=== PATIENT | male | born 1970 | race Caucasian/White ===

== ENCOUNTER 2020-02-25 08:01 | Outpatient (CLI) | payer OTHER, SELFPAY ==
--- NOTE | ~2020-02-25 | CT_ITS ---
EXAMINATION: CT abdomen pelvis w con DATE: 02/25/2020 08:30 INDICATION: Abdominal pain. TECHNIQUE: Computed tomography (CT) of the abdomen and pelvis was performed with 100 mL Omnipaque 350 intravenous contrast. Automated exposure control and iterative reconstruction technique were employe d. The dose-length product was 983.77 mGy-cm. COMPARISON: Ultrasound 12/20/2017 FINDINGS: The visualized portions of the lung bases demonstrate mild atelectasis. No pleural effusion . The heart size is normal. No pericardial effusion. The liver, spleen, gallbladder, pancreas, and ad renal glands are normal. There are cysts in the kidneys measuring up to 11 mm on the right. The prost ate is mildly enlarged. There is diverticulosis of the colon without evidence of diverticulitis. The appendix is normal. There are no dilated loops of bowel. There is mild fat stranding at the root of t he small bowel mesentery. There are no pathologically enlarged lymph nodes. There is no free intraper itoneal fluid. There is a small left inguinal hernia containing fat. There is mild lumbar spondylosis . IMPRESSION: 1. Mild fat stranding at the root of the small bowel mesentery, consistent with edema versus inflamma tion/scarring (mesenteric panniculitis). 2. Small left inguinal hernia containing fat. Reviewed, dictated and finalized at location A. MIXER IMPRESSION: 1. Mild fat stranding at the root of the small bowel mesentery, consistent with edema versus inflammation/scarring (mesenteric panniculitis). 2. Small left inguinal hernia containing fat.
== END 2020-02-25 08:02 | disposition home or self-care (01) ==
LOC: ANHIMG 08:11
PROVIDERS: PCP Family Medicine; Visit Provider Family Medicine
DX: R10.9 Unspecified abdominal pain (principal); K40.90 Unilateral inguinal hernia, without obstruction or gangrene, not specified as recurrent
CPT/HCPCS: 74177; Q9967

== ENCOUNTER 2022-09-11 21:01 | Inpatient (IN) | payer OTHER, SELFPAY ==
[2022-09-11] VITALS (8 sets, daily range): BP systolic 167–185; BP diastolic 117–155; PULSE 70–90; RESP 12–22; TEMP 36.9; O2SAT 94–100; BMI 29.8
--- NOTE | ~2022-09-11 | XR_ITS ---
Portable chest x-ray Comparison: 10/05/2016 Clinical History: Chest pain Findings: Lungs are clear, without focal consolidation or pleural effusion. Cardiomediastinal silho uette is stable. Bones and soft tissues are unremarkable. Impression: Normal chest. Reviewed, dictated and finalized at [facility]. Impression: Normal chest.
--- NOTE | 2022-09-11 21:02 | ECG_ITS ---
Measurements Intervals [place] Rate: 78 P: 43 KS: 145 QRS: -12 QRSD: 102 T: 70 QT: 359 QTc: 411 Interpretive Statements SINUS RHYTHM WITH FREQUENT VENTRICULAR PREMATURE COMPLEXES POSSIBLE RIGHT VENTRICULAR CONDUCTION DELAY [RSR (QR) IN V1/V2] INFERIOR MYOCARDIAL INFARCTION , POSSIBLY ACUTE [40+ ms Q WAVE AND/OR ST/T ABNORMALITY IN II/aVF] ACUTE OR ABNORMAL ECG NO PREVIOUS ECG AVAILABLE FOR COMPARISON Electronically Signed On 09-12-2022 10:22:08 CDT by Louis Leigh M.D.
--- NOTE | 2022-09-11 21:13 | ECG_ITS ---
Measurements Intervals [place] Rate: 73 P: 45 MS: 143 QRS: -14 QRSD: 102 T: 66 QT: 359 QTc: 396 Interpretive Statements SINUS RHYTHM WITH OCCASIONAL VENTRICULAR PREMATURE COMPLEXES LOW QRS VOLTAGE IN PRECORDIAL LEADS [QRS DEFLECTION < 1.0 mV IN CHEST LEADS] POSSIBLE RIGHT VENTRICULAR CONDUCTION DELAY [RSR (QR) IN V1/V2] MARKED ST ELEVATION, CONSIDER INFERIOR INJURY [MARKED ST ELEVATION W/O NORMALLY INFLECTED T-WAVE IN II/aVF] ACUTE WI ABNORMAL ECG COMPARED TO ECG 09/11/2022 21:06:14 NO SIGNIFICANT CHANGES Electronically Signed On 09-14-2022 12:07:01 CDT by Louis Leigh M.D.
[2022-09-11] MEDS: ASPIRIN 81 MG CHEWABLE TABLET 324 MG PO (21:22)
[2022-09-11] MEDS: TICAGRELOR 90 MG TABLET 180 MG PO (21:23)
[2022-09-11 21:25] LABS: Basophils Absolute Auto 0.1 K/mm3 (0.0-0.1); Basophils Percent Auto 0.9 % (0.2-1.2); Eosinophils Absolute Auto 0.2 K/mm3 (0-0.3); Eosinophils Percent Auto 3.8 % (0-4.4); Hematocrit 46.5 % (42.0-52.0); Hemoglobin 15.6 g/dL (14.0-18.0); Immature Granulocyte Absolute 0.01 K/mm3 (0.00-0.031); Immature Granulocyte Percent A 0.2 % (0-0.5); Lymphocytes Percent Auto 34.6 % (18.3-44.2); Mean Corpuscular HGB Conc 33.5 g/dl (32-36); Mean Corpuscular Hemoglobin 28.8 pg (26-34); Mean Corpuscular Volume 85.8 fl (80-100); Mean Platelet Volume 9.7 fl (7.4-10.4); Monocytes Absolute Auto 0.4 K/mm3 (0.1-0.6); Monocytes Percent Auto 6.1 % (2.6-8.5); Neutrophils Absolute Auto 3.5 K/mm3 (1.3-6.7); Neutrophils Percent Auto 54.4 % (45.5-73.1); Platelet Count Result 266 k/mm3 (150-375); Red Blood Count 5.42 M/mm3 (4.6-6.20); Red Cell Distribution Width 13.5 % (11.5-14.5); White Blood Count 6.4 K/mm3 (4.5-10.0)
[2022-09-11] MEDS: MORPHINE SULFATE (*CRX) 4 MG/ML INJ IV PUSH (21:25)
[2022-09-11] MEDS: HEPARIN SODIUM 5,000 UNITS/ML VIAL 4000 UNITS IV PUSH (21:27)
--- NOTE | 2022-09-11 21:31 | ED.GENADULT ---
HPI - General Adult General Chief complaint: Chest Pain Stated complaint: chest pain Time Seen by Provider: 09/11/22 21:15 History of Present Illness HPI narrative: Patient 52-year-old gentleman who presents emergency department with chief complaint of chest pain. The patient states approximate 30 minutes prior to arrival he started having midsternal pain in his chest. The patient reports is not improved by anything reports that he has significant family history for cardiac disease but is personally never had a heart attack. The patient states that his father had a NC in the 40s Related Data Home Medications Medication Instructions Recorded Confirmed cetirizine 10 mg tablet 10 mg PO DAILY 03/30/20 04/06/20 fluticasone propionate 50 1 spray intranasal DAILY 03/30/20 04/06/20 mcg/actuation nasal spray,suspension (24 Hour Allergy Relief) naproxen 500 mg tablet 500 mg PO BID 03/30/20 04/06/20 Allergies Allergy/AdvReac Type Severity Reaction Status Date / Time No Known Allergies Allergy Verified 09/11/22 21:02 Review of Systems Review of Systems: A 10 system review of systems was completed on the patient and is negative except for what is stated in the HPI. Nursing and ancillary documentation was reviewed. PMFSH Past Medical History Medical History Abnormal CT of the abdomen Anxiety Asthma High cholesterol Neoplasm of skin Surgical History Surgical History H/O knee surgery x4 H/O removal of cyst Family History Family History Mother Family history of diabetes mellitus in first degree relative Family history of lymphoma Diabetes mellitus Cerebrovascular accident Father Family history of heart disease in male family member before age 55 Social History Social History Smoking status: Never smoker Alcohol intake: current Substance use: unknown Living arrangements: with family Occupation/Education: occupation Additional occupation/education comments: [employer] Gender identity (if verbalized by the patient): Male Exam Narrative: GENERAL: Well-appearing, well-nourished, and in no acute distress. HEAD: Normocephalic, atraumatic. EYES: PERRLA and EOMI. ENT: Nares clear, no rhinorrhea or epistaxis. Mucous membranes moist. NECK: Supple. CHEST: Clear to auscultation. No respiratory distress. HEART: Regular rate and rhythm. No murmur heard. Normal peripheral pulses. ABDOMEN: Soft, nontender, nondistended, normal active bowel sounds. EXTREMITIES: Normal range of motion. No edema. SKIN: Warm, dry, no rash. NEURO: No focal deficits. Alert and oriented x3. PSYCH: Normal mood and affect. Course Course Emergency Course: Differential diagnosis includes NSTEMI, STEMI, ACS, Initial EKG showed inferior ST elevations and the patient was immediately activated as an ST elevation NC. Case was discussed with Dr. Rodrigez who is the interventional list on she will be taking the patient to the Hospital Administrative Assistant the patient was given aspirin Brilinta and heparin Vital Signs Vital signs: Vital Signs Temperature 36.9 C 09/11/22 21:11 Pulse Rate 70 09/11/22 21:11 Respiratory Rate 22 H 09/11/22 21:11 Blood Pressure 167/117 H 09/11/22 21:11 Pulse Oximetry 94 09/11/22 21:11 Oxygen Delivery Room Air 09/11/22 21:11 Temperature 36.9 C 09/11/22 21:11 Pulse Rate 75 09/11/22 21:16 Respiratory Rate 22 H 09/11/22 21:11 Blood Pressure 167/117 H 09/11/22 21:11 Pulse Oximetry 97 09/11/22 21:17 Oxygen Delivery Room Air 09/11/22 21:17 Medical Decision Making Vital Signs Vital Signs: Vital Signs Temperature 36.9 C 09/11/22 21:11 Pulse Rate 70 09/11/22 21:11 Respiratory Rate 22 H 09/11/22 21:11
[2022-09-11 21:35] LABS: Alanine Aminotransferase 40 U/L (6-50); Albumin Level 4.5 g/dL (3.5-5.1); Alkaline Phosphatase 51 U/L (38-126); Anion Gap 9 mmol/L (8-16); Aspartate Amino Transferase 41 U/L (17-59); Bilirubin,Total 0.5 mg/dL (0.2-1.3); Blood Urea Nitrogen 20 mg/dL (9-20); Calcium 9.1 mg/dL (8.4-10.2); Carbon Dioxide 26 mmol/L (22-30); Chloride 108 mmol/L (98-107); Estimated CRCL calculation 80 ml/min; Estimated Glomerular Filt Rate > 60; Glucose 126 mg/dL (65-110); Lipase 208 U/L (23-300); Potassium 3.8 mmol/L (3.4-5.0); Prothrombin Time 13.3 Seconds (11.1-14.7); Sodium 143 mmol/L (137-145)
[2022-09-11 21:36] LABS: Partial Thromboplastin Time 28.2 SECONDS (22.3-36.8)
[2022-09-11] MEDS: HEPARIN SOD/D5W 100 UNITS/ML 25,000 UNITS/250 ML BAG 10 UNITS IV CONT (21:39)
[2022-09-11 21:46] LABS: Troponin I < 0.012 ng/mL (0.000-0.034)
--- NOTE | 2022-09-11 22:16 | PM.IMHP ---
H&P: HPI History of Present Illness Date/Time: 09/11/22 22:16 Chief Complaint: Chest pain Narrative: Patient is a 52-year-old male who presented to [facility] for chest pain that began about 30 minutes prior to arrival to ER. EKG shows inferior STEMI. 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 Patient has family history of premature CAD. Review of Systems Review of Systems: All systems reviewed & are unremarkable except as noted in HPI and below (HPI) [facility] Past Medical History Medical History Abnormal CT of the abdomen Anxiety Asthma High cholesterol Neoplasm of skin Surgical History Surgical History H/O knee surgery x4 H/O removal of cyst Family History Family History Mother Family history of diabetes mellitus in first degree relative Family history of lymphoma Diabetes mellitus Cerebrovascular accident Father Family history of heart disease in male family member before age 55 Social History Social History Smoking status: Never smoker Alcohol intake: current Substance use: unknown Living arrangements: with family Occupation/Education: occupation Additional occupation/education comments: [employer] Gender identity (if verbalized by the patient): Male Meds Home Medications and Allergies Home Medications Medication Instructions Recorded Confirmed Type cetirizine 10 mg tablet 10 mg PO DAILY 03/30/20 04/06/20 History fluticasone propionate 50 1 spray intranasal DAILY 03/30/20 04/06/20 History mcg/actuation nasal spray,suspension (24 Hour Allergy Relief) naproxen 500 mg tablet 500 mg PO BID 03/30/20 04/06/20 History Allergies Allergy/AdvReac Type Severity Reaction Status Date / Time No Known Allergies Allergy Verified 09/11/22 21:02 Vital Signs Vital Signs - 24 hr 09/11/22 21:11 09/11/22 21:16 09/11/22 21:17 Temperature 36.9 C Pulse Rate 70 75 Respiratory Rate 22 H Blood Pressure 167/117 H Pulse Oximetry 94 97 Oxygen Delivery Room Air Room Air 09/11/22 21:49 Temperature Pulse Rate 74 Respiratory Rate 12 Blood Pressure 181/125 H Pulse Oximetry 96 Oxygen Delivery Exam Const: General: no acute distress HENMT: Mouth: Yes moist mucous membranes Eyes: General: appearance normal, both eyes and all related structures Sclera: sclerae normal Neck: Neck: supple Resp: Effort & Inspection: normal respiratory effort Auscultation: clear to auscultation bilaterally Cardio: Rate: regular rate Rhythm: regular rhythm Neuro: Speech: normal speech Extrem: General: normal to inspection Psych: Mental Status: mental status grossly normal Affect: normal affect H&P: Results Labs Labs: Short CBC 09/11/22 Range/Units 21:20 WBC 6.4 (4.5-10.0) K/mm3 Hgb 15.6 (14.0-18.0) g/dL Hct 46.5 (42.0-52.0) % Plt Count 266 (150-375) k/mm3 BMP 09/11/22 21:20 Sodium 143 Potassium 3.8 Chloride 108 H Carbon Dioxide 26 BUN 20 Creatinine 1.10 Glucose 126 H Calcium 9.1 Cardiac Enzymes 09/11/22 Range/Units 21:20 Troponin I < 0.012 (0.000-0.034) ng/mL Liver Function 09/11/22 Range/Units 21:20 Total Bilirubin 0.5 (0.2-1.3) mg/dL AST 41 (17-59) U/L ALT 40 (6-50) U/L Alkaline Phosphatase 51 (38-126) U/L Albumin 4.5 (3.5-5.1) g/dL Assessment and Plan Assessment and plan (1) Acute ST elevation myocardial infarction: Qualifiers: Involved coronary artery: unspecified coronary artery Qualified Code(s): I21.3 - ST elevation (STEMI) myocardial infarction of unspecified site Code(s): I21.3 - ST elevation (STEMI) myocardial infarction of unspecified site Status: Acute Assessment and Plan: Proceed with emergent cardiac cath. Patient loaded with ASA and
--- NOTE | 2022-09-11 22:19 | WPDMODSED ---
Moderate Sedation Note-Pt Data Patient Data Diagnosis: Inferior STEMI Present Complaint: Chest pain Procedure to be performed/Plan: Primary PCI Allergies Allergy/AdvReac Type Severity Reaction Status Date / Time No Known Allergies Allergy Verified 09/11/22 21:02 Home Medications Medication Instructions Recorded Confirmed Type cetirizine 10 mg tablet 10 mg PO DAILY 03/30/20 04/06/20 History fluticasone propionate 50 1 spray intranasal DAILY 03/30/20 04/06/20 History mcg/actuation nasal spray,suspension (24 Hour Allergy Relief) naproxen 500 mg tablet 500 mg PO BID 03/30/20 04/06/20 History Current Medications: Active Medications Heparin Sodium (Porcine) (Heparin Sodium 5,000 Units/Ml Vial) 3,500 units IV PUSH PRN PRN PRN Reason: aPTT 55 - 70 seconds Heparin Sodium (Porcine) (Heparin Sodium 5,000 Units/Ml Vial) 4,000 units IV PUSH PRN PRN PRN Reason: aPTT less than 55 seconds Heparin Sodium/Dextrose (Heparin Sodium/D5w 100 Units/Ml) 25,000 units in 250 mls @ 10 mls/hr IV CONT .Q24H ANDRÉS; Protocol Last Admin: 09/11/22 21:39 Dose: 1,000 units/hr, 10 mls/hr Sedation/Anesthesia: No previous sedation/anesthesia problems (including family history). [facility] Past Medical History Medical History Abnormal CT of the abdomen Anxiety Asthma High cholesterol Neoplasm of skin Surgical History Surgical History H/O knee surgery x4 H/O removal of cyst Family History Family History Mother Family history of diabetes mellitus in first degree relative Family history of lymphoma Diabetes mellitus Cerebrovascular accident Father Family history of heart disease in male family member before age 55 Social History Social History Smoking status: Never smoker Alcohol intake: current Substance use: unknown Living arrangements: with family Occupation/Education: occupation Additional occupation/education comments: [employer] Gender identity (if verbalized by the patient): Male Mod Sed Physical Exam Physical Exam Pre Procedural Exam: Normal: Appearance, Lungs, Heart Rate, Heart Rhythm, Neuro Exam, Abdomen, Extremities and Skin Hours since solid foods: 4 Hours since liquid intake: 4 Mallampati Classification: class III Internal Medicine - PN: Obj Da Vital Signs Vital Signs: Vital Signs - 24 hr 09/11/22 21:11 09/11/22 21:16 09/11/22 21:17 Temperature 36.9 C Pulse Rate 70 75 Respiratory Rate 22 H Blood Pressure 167/117 H Pulse Oximetry 94 97 Oxygen Delivery Room Air Room Air 09/11/22 21:49 Temperature Pulse Rate 74 Respiratory Rate 12 Blood Pressure 181/125 H Pulse Oximetry 96 Oxygen Delivery Meds/Results Medications: Active Medications Generic Name Dose Route Start Last Admin Trade Name Freq PRN Reason Stop Dose Admin Heparin Sodium (Porcine) 3,500 units 09/11/22 21:22 Heparin Sodium 5,000 Units/Ml Vial IV PUSH PRN PRN aPTT 55 - 70 seconds Heparin Sodium (Porcine) 4,000 units 09/11/22 21:22 Heparin Sodium 5,000 Units/Ml Vial IV PUSH PRN PRN aPTT less than 55 seconds Heparin Sodium/Dextrose 25,000 units in 250 mls @ 10 mls/hr 09/11/22 21:25 09/11/22 21:39 Heparin Sodium/D5w 100 Units/Ml IV CONT 1,000 units/hr .Q24H ANDRÉS 10 mls/hr Administration Protocol 1,000 UNITS/HR Radiology Results: ITS Impressions Chest X-Ray 09/11/22 21:47 Impression: Normal chest. Labs 09/11/22 21:20 09/11/22 21:20 Labs: Laboratory Results - last 24 hr 09/11/22 21:20 WBC 6.4 RBC 5.42 Hgb 15.6 Hct 46.5 MCV 85.8 MCH 28.8 MCHC 33.5 RDW 13.5 Plt Count 266 MPV 9.7 Immature Gran % (Auto) 0.2 Neut % (Auto) 54.4 Lymph % (Auto) 34
--- NOTE | 2022-09-11 22:20 | WPDCARDPROC ---
Cardiac Cath Procedure Note Date of procedure:: 09/11/22 Performing physician:: CATHETERIZATION LABORATORY REPORT Procedure Date: 09/11/2022 Car Shunter: Dustin Rodrigez M.D., [facility]? Referring Physician: Dr. Lema ([facility]) Anesthesia: Versed and Fentanyl were ordered and given in my presence at 22:24, procedure ended at 23:11. Supervision of nurse monitored moderate sedation with Versed and Fentanyl was provided for 47 minutes. Total of Versed 3mg, Fentanyl 100mcg, and Morphine 2mg were administered by the Information Security Systems Instructor RN Sherin Vallejo. Pre-op Diagnosis: STEMI Post-op Diagnosis: 1. Acute 100% occlusion of mid RCA s/p successful IVUS-guided PCI with JOSE D x 1 2. Left ventricular end-diastolic pressure of 38mmHg Of note, [id number] time was >90 minutes as not all members of the on-call STEMI team were called in / notified about the STEMI. This resulted in delay of arrival of cath team, and therefore, delayed the arrival of patient to the carpenter labor supervisor. Procedure(s): 1. Moderate sedation 2. Ultrasound-guided access of the right common femoral artery 3. Coronary angiography 4. Left heart cath 5. PCI of the mid RCA with JOSE D x 1, with pre and post dilatation 6. IVUS of the RCA. 7. Angioseal closure of the right common femoral artery Access Site: Right common femoral artery Brief History and Clinical Indications: Patient is a 52-year-old male who is referred for emergent cardiac cath for STEMI. All risks, benefits and alternatives to left heart catheterization with or without percutaneous coronary intervention was discussed at length with the patient. Risk of complications including but not limited to bleeding, infection, arrhythmia, stroke, worsening kidney function, blood loss, groin hematoma, limb loss, emergency coronary artery bypass grafting, and even were discussed with the patient and all questions were answered. The patient understood and wished to proceed. Time out called, patient name, date of , medical record number, allergies, procedure performed, identify Car Shunter, patient and staff member concurred with accurate data, procedure carried on. Findings: LEFT HEART CATHETERIZATION FINDINGS: 1. Left main: The left main coronary artery is widely patent without any significant obstructive disease. The left main is short. 2. Left anterior descending: The proximal and mid portion of the LAD is large caliber vessel and with mild diffuse disease. The distal LAD is small-medium caliber and is diffusely diseased. The diagonal vessels are of small caliber and with diffuse disease. 3. Left circumflex: The left circumflex is a large caliber vessel with mild diffuse disease without any significant obstructive angiographic disease. There is a medium caliber OM branch with mild diffuse disease without significant obstructive angiographic disease. 4. Right coronary artery: The RCA is the dominant vessel. The RCA is a large caliber vessel. The proximal RCA has mild diffuse disease. There is a 100% acute occlusion of the mid RCA. 5. Left ventricle: A. End-diastolic pressure 38mmHg. B. LV gram deferred. C. No significant gradient across aortic valve on catheter pullback. Description of Procedure and PCI: Patient transferred to carpenter labor supervisor room. Prepped and draped in usual sterile fashion. 2% lidocaine in right groin area. Micropuncture needle used to access right common femoral artery with Seldinger technique under fluoroscopic and ultrasound guidance. J wire advanced, micropuncture cannula placed. Right iliofemoral angiogram performed, access confirmed and micropuncture cannula exchanged for 6-FR sheath. 5F FL 4 diagnostic catheter engaged Left Main Coronary Artery. Multiple orthogonal angiogram obtained and reviewed Angiomax used for anticoagulation. 6F JR 4 guide catheter was used to intubate the RCA. 0.014 Chemult coronary wire was passed in to the distal RCA. The lesion was pre-dilated with a 3.0mm x 15
[2022-09-11 22:38] LABS: Cholesterol 232 mg/dL (0-200); HDL Direct 33 mg/dL; Triglycerides 258 mg/dL (<150)
[2022-09-11 22:40] LABS: Hemoglobin A1C 5.4 % (<5.7)
[2022-09-11 22:49] LABS: LDL Cholesterol Direct 160 mg/dL
--- NOTE | 2022-09-11 23:49 | ADMGEN ---
This patient, Bandar Cerda, was admitted to Intensive Care Unit-6 on 09/11/22 at 2350. Patient/family oriented to hospital policies and general routines including ID bracelet, bed and alarms, visiting hours, pain management, procedures, bathroom and other care routines, personal items, smoking policy, room service/diet, and visiting hours. Information on how to activate the Rapid Response Team has been discussed. Patient/Family are encouraged to report perceived risks to care and to ask questions if they do not understand what they are told or what they should do.
[2022-09-12] VITALS (15 sets, daily range): BP systolic 113–149; BP diastolic 73–93; PULSE 61–88; RESP 11–20; TEMP 36.2–37.2; O2SAT 91–99
--- NOTE | 2022-09-12 | ECHO_ITS ---
Patient Info Name: Bandar Cerda Age: 52 years : 1970 Gender: Male Ht: 74 in Wt: 230 lbs BSA: 2.35 m2 HR: 77 bpm BP: 127 / 79 mmHg Heart Rhythm: Sinus Rhythm Technical Quality: Fair Exam Date: 09/12/2022 8:10 AM Exam Location: [facility] Patient Status: Inpatient Admit Date: 09/11/2022 Staff Ordering Physician: Dustin Rodrigez MD (gustavo/liliam) Clearance Rep: Keara Mendoza RDCS Attending Provider: Dustin Rodrigez MD (gustavo/liliam) Referring Physician: Elia GRACE; Exam Type: CA echo doppler color flow Study Info Indications - STEMI Complete two-dimensional, color flow and Doppler transthoracic echocardiogram is performed. Summary 1. Complete two-dimensional, color flow and Doppler transthoracic echocardiogram is performed. 2. Normal left ventricular size and thickness, inferior wall hypokinesia overall normal ejection fraction. 3. Right ventricular systolic dysfunction. 4. No significant valvular dysfunction. Left Ventricle Left ventricular chamber dimension is normal. Left ventricular systolic function is normal, estimated at 55-60%. The left ventricular diastolic function is grade I diastolic dysfunction. Right Ventricle Right ventricular chamber dimension is normal. Right ventricular systolic function is reduced. Left Atria Left atrial chamber dimension is normal. Right Atria Right atrial chamber dimension is normal. Aortic Valve The aortic valve is normal. Pulmonic Valve The pulmonic valve is normal. Mitral Valve The mitral valve has normal leaflets. Tricuspid Valve The tricuspid valve leaflets are normal. Pericardium/Pleural The pericardium appears normal. Aorta The aortic root size at the sinus of Valsalva is normal. Left Ventricular Outflow Tract Name Value Normal LVOT 2D LVOT Diameter 2.0 cm LVOT Doppler LVOT Peak Gradient 4 mmHg LVOT Mean Gradient 2 mmHg LVOT VTI 20 cm LVOT VTI/AV VTI Ratio 0.9 LVOT Stroke Volume 65 ml LVOT CO 4.0 l/min LVOT CI 1.7 l/min/m2 Pulmonic Valve Name Value Normal RVOT Doppler RVOT Peak Gradient 1 mmHg PV Doppler PV Peak Gradient 3 mmHg Mitral Valve Name Value Normal MV Doppler MV Decel Early 318 cm/s2 MV PHT 48 ms MV Area (PHT) 4.6 cm2 4.0-5.0 MV Diastolic Function
--- NOTE | 2022-09-12 01:50 | ECG_ITS ---
Measurements Intervals [place] Rate: 89 P: 50 AR: 153 QRS: -19 QRSD: 103 T: -19 QT: 359 QTc: 439 Interpretive Statements SINUS RHYTHM INCOMPLETE RIGHT BUNDLE BRANCH BLOCK [90+ ms QRS DURATION, TERMINAL R IN V1/V2, 40+ ms S IN I/aVL/V4/V5/V6] INFERIOR MYOCARDIAL INFARCTION RECENT BY ECG REVIEW COMPARED TO ECG 09/11/2022 21:06:14 ACUTE INJURY HAS RESOLVED AND ECTOPIC ACTIVITY IS ALSO RESOLVED Electronically Signed On 09-12-2022 16:22:17 CDT by Markus Maldonado M.D.
[2022-09-12 03:24] LABS: Basophils Percent Auto 0.5 % (0.2-1.2); Eosinophils Percent Auto 0.5 % (0-4.4); Hematocrit 43.8 % (42.0-52.0); Hemoglobin 14.4 g/dL (14.0-18.0); Immature Granulocyte Absolute 0.02 K/mm3 (0.00-0.031); Immature Granulocyte Percent A 0.3 % (0-0.5); Lymphocytes Absolute Auto 0.89 K/mm3 (0.9-3.2); Lymphocytes Percent Auto 11.4 % (18.3-44.2); Mean Corpuscular HGB Conc 32.9 g/dl (32-36); Mean Corpuscular Hemoglobin 28.6 pg (26-34); Mean Corpuscular Volume 87.1 fl (80-100); Mean Platelet Volume 9.4 fl (7.4-10.4); Monocytes Absolute Auto 0.3 K/mm3 (0.1-0.6); Monocytes Percent Auto 4.1 % (2.6-8.5); Neutrophils Absolute Auto 6.5 K/mm3 (1.3-6.7); Neutrophils Percent Auto 83.2 % (45.5-73.1); Platelet Count Result 226 k/mm3 (150-375); Red Blood Count 5.03 M/mm3 (4.6-6.20); Red Cell Distribution Width 13.7 % (11.5-14.5); White Blood Count 7.8 K/mm3 (4.5-10.0)
[2022-09-12 03:37] LABS: Anion Gap 6 mmol/L (8-16); Blood Urea Nitrogen 15 mg/dL (9-20); Calcium 8.4 mg/dL (8.4-10.2); Carbon Dioxide 23 mmol/L (22-30); Chloride 109 mmol/L (98-107); Estimated CRCL calculation 122 ml/min; Estimated Glomerular Filt Rate > 60; Glucose 153 mg/dL (65-110); Magnesium 1.8 mg/dL (1.6-2.3); Potassium 3.8 mmol/L (3.4-5.0); Sodium 138 mmol/L (137-145)
[2022-09-12] MEDS: MAGNESIUM SULF 1 GM/D5W 100 ML 1 GM/100 ML BAG IVPB (04:52)
[2022-09-12] MEDS: METOPROLOL TARTRATE 12.5 MG TABLET PO ×2 (04:53→20:20)
[2022-09-12] MEDS: ONDANSETRON INJ 4 MG/2 ML VIAL IV PUSH (08:54)
[2022-09-12] MEDS: ATORVASTATIN 40 MG TABLET 80 MG PO (08:55)
[2022-09-12] MEDS: TICAGRELOR 90 MG TABLET PO ×2 (08:55→20:20)
[2022-09-12] MEDS: ASPIRIN 81 MG ENTERIC TABLET PO (08:55)
--- NOTE | 2022-09-12 09:30 | WPDCNINT ---
Assessment and Plan Assessment and plan (1) Acute ST elevation myocardial infarction: Qualifiers: Involved coronary artery: unspecified coronary artery Qualified Code(s): I21.3 - ST elevation (STEMI) myocardial infarction of unspecified site Code(s): I21.3 - ST elevation (STEMI) myocardial infarction of unspecified site Status: Acute Assessment and Plan: 09/11: Presented to the ED with chest pain that started 30 minutes prior to arrival to the ED, substernal chest pain with shortness of breath with no alleviating factor. Patient does have a family history with PMH of coronary artery disease -EKG in the ER of showed inferior ST-elevation [place], -patient taken to cardiac r and d lab technician where he was found to have acute 100% occlusion of the mid RCA status post successful IVUS guided PCI with JOSE D x1 to mid RCA. -continue aspirin, atorvastatin, metoprolol and ticagrelor -cardiology following the patient -echocardiogram has been ordered (2) Hyperlipidemia: Code(s): E78.5 - Hyperlipidemia, unspecified Status: Acute Assessment and Plan: Continue high-dose statin Plan DVT prophylaxis: Patient post cardiac catheterization Stress ulcer prophylaxis: Not indicated Nutrition: Heart healthy diet Code Status: Full code Critical Care Time Spent: 44 minutes Due to a high probability of clinically significant, life threatening deterioration, the patient required my highest level of preparedness to intervene emergently and I personally spent this critical care time directly and personally managing the patient. This critical care time included obtaining a history; examining the patient; pulse oximetry; ordering and review of studies; arranging urgent treatment with development of a management plan; evaluation of patient's response to treatment; frequent reassessment; and discussions with other providers. It was exclusive of separately billable procedures and treating other patients and teaching time. Please see Assessment and Plan section and the rest of the note for further information on patient assessment and treatment This dictation may have been done utilizing a voice recognition system. Attempts have been made to correct errors. However, there may be uncorrected grammatical, spelling, and recognitions errors present. Teacher Of The Visually Impaired Consult Note Consult date: 09/12/22 Reason for consult: Inferior ST-elevation [place] status post IVUS guided PCI with JOSE D x1 to mid RCA HPI: Bandar Cerda is a 52 year old male past medical history of anxiety, asthma, elevated cholesterol, neoplasm of the skin, history of knee surgery continue ED on 09/11/2022 with complains chest pain that started 30 minutes prior to arrival to the ED. He stated that the pain was midsternal accompanied with shortness of breath. Patient does have family history for premature cardiac disease. In the ER EKG showed inferior ST elevation and code STEMI was activated. Patient was taken the cardiac r and d lab technician where he was found to have acute 100% occlusion of the mid RCA status post successful IVUS guided PCI with JOSE D x1 to mid RCA. Patient was admitted to the ICU for further management Patient seen and examined this morning in the ICU, remains awake, alert, oriented x3, nonfocal. Denies any chest pain, shortness a breath, nausea, vomiting, abdominal pain. Hemodynamically stable, adequate urine output, afebrile. No complaints overnight Review of Systems Review of Systems: All systems reviewed & are unremarkable except as noted in HPI and below PMFSH Past Medical History Medical History Abnormal CT of the abdomen Anxiety Asthma High cholesterol Neoplasm of skin Surgical History Surgical History H/O knee surgery x4 H/O removal of cyst Family History Family History Mother Family history of
[2022-09-12] MEDS: PROCHLORPERAZINE EDISYLATE 10 MG/2 ML VIAL IV PUSH (10:50)
--- NOTE | 2022-09-12 10:59 | PM.PNCARD ---
Progress Note: A&P Assessment and Plan (1) Acute ST elevation myocardial infarction: Qualifiers: Involved coronary artery: unspecified coronary artery Qualified Code(s): I21.3 - ST elevation (STEMI) myocardial infarction of unspecified site Code(s): I21.3 - ST elevation (STEMI) myocardial infarction of unspecified site Status: Acute Plan 52-year-old man with: Coronary artery disease presenting last evening with acute ST-elevation inferior wall RI. Patient underwent successful PCI as detailed in the report restoring KEITH 3 flow in the RCA and is doing well today. He does have some nausea this morning but no other ischemic symptoms. Troponin did rise to over 23. Nonsustained ventricular arrhythmias today which are asymptomatic and at this point do not merit additional treatment we are still less than 24 hours from the RI. will start low-dose ARB today. OK to move to IMU today Markus Maldonado MD [facility] Subjective Date/time seen: Regained date of service: 09/12/22 10:59 Interval history: Follow-up visit in this 52-year-old man with: Coronary artery disease diagnosis last night with presentation for inferior wall ST-elevation RI. Patient underwent successful emergency revascularization with drug-eluting stent to the mid right coronary artery. He is stable this morning he does have on telemetry some asymptomatic ventricular arrhythmias including some short runs of nonsustained VT. No further ischemic chest pain he still has some lingering nausea this morning. Exam Const: General: comfortable and no acute distress Other: Well-developed well-nourished white male no apparent distress HENMT: Mouth: Yes moist mucous membranes Eyes: Sclera: sclerae normal Pupils: Equal, round and reactive pupils present Neck: Neck: supple and no JVD Resp: Effort & Inspection: normal respiratory effort Auscultation: clear to auscultation bilaterally Cardio: Rate: regular rate Rhythm: regular rhythm Other: No murmur no gallop GI: GI Palp: Yes Soft to palpation Auscultation: normal bowel sounds Skin: General skin exam: normal color Neuro: Other: Alert and oriented, normal cognition Extrem: General: normal to inspection Objective Data Vital Signs Vital Signs: Vital Signs - 24 hr 09/11/22 21:11 09/11/22 21:16 09/11/22 21:17 Temperature 36.9 C Pulse Rate 70 75 Respiratory Rate 22 H Blood Pressure 167/117 H Pulse Oximetry 94 97 Oxygen Delivery Room Air Room Air 09/11/22 21:49 09/12/22 00:00 09/12/22 00:00 Temperature 37.2 C Pulse Rate 74 74 69 Respiratory Rate 12 12 19 Blood Pressure 181/125 H 145/86 H Pulse Oximetry 96 96 95 Oxygen Delivery Room Air 09/12/22 02:00 09/12/22 02:00 09/12/22 04:53 Temperature 37.1 C Pulse Rate 83 83 87 Respiratory Rate 20 Blood Pressure 113/88 Pulse Oximetry 91 Oxygen Delivery 09/12/22 04:00 09/12/22 04:00 09/12/22 04:00 Temperature 37.0 C Pulse Rate 88 88 88 Respiratory Rate 20 20 Blood Pressure 126/93 H Pulse Oximetry 93 93 Oxygen Delivery Room Air 09/12/22 06:00 09/12/22 06:00 09/12/22 00:00 Temperature Pulse Rate 85 77 85 Respiratory Rate 20 Blood Pressure 127/79 Pulse Oximetry 95 Oxygen Delivery 09/12/22 08:00 09/12/22 08:00 09/12/22 10:00 Temperature 36.4 C L Pulse Rate 71 71 67 Respiratory Rate 11 L 11 L 12 Blood Pressure 126/91 H 138/73 Pulse Oximetry 96 96 95 Oxygen Delivery Room Air 09/11/22 21:47 09/11/22 22:00 09/11/22 22:01 Temperature Pulse Rate 81 77 78 Respiratory Rate 12 14 17 Blood Pressure 185/155 H Pulse Oximetry 96 96 100 Oxygen Delivery Intake/Output Intake/Output: Intake & Output 09/09/22 09/10/22 09/11/22 09/12/22 23:59 23:59 23:59 23:59 Intake Total 0 Output Total 700 Balance -700 Meds/Results Medications: Active Medications Generic Name Dose Route Start Last Admin Trade Name
--- NOTE | 2022-09-12 11:29 | PC.NURSE ---
1115- Patient c/o worsening nausea, administered one time compazine. Patient began feeling worse , having sob, and not feeling well . Ambulated patient in room per his request to get up and move. Notified Dr. Maldonado at this time, no new orders, will continue to monitor .
[2022-09-12] MEDS: ALPRAZolam (*CRX) 0.5 MG TABLET PO (11:52)
--- NOTE | 2022-09-12 18:23 | PC.NURSE ---
This patient, Bandar Cerad, was received from [ICU 6 ] on 09/12/22 at 18:14. report taken from Hailey HIGGINS. Patient/family oriented to unit policies and routines. Pt on room air, A&O x 4. No distress noted.
[2022-09-12] MEDS: ACETAMINOPHEN 500 MG TABLET PO (21:21)
[2022-09-13] VITALS: PULSE 62
[2022-09-13 02:00] VITALS: PULSE 64
[2022-09-13 04:00] VITALS: BP 120/54; PULSE 61; PULSE 72; RESP 20; TEMP 36.4; O2SAT 98
[2022-09-13 05:04] LABS: Basophils Absolute Auto 0.1 K/mm3 (0.0-0.1); Basophils Percent Auto 0.7 % (0.2-1.2); Eosinophils Absolute Auto 0.2 K/mm3 (0-0.3); Eosinophils Percent Auto 2.4 % (0-4.4); Hematocrit 43.9 % (42.0-52.0); Hemoglobin 14.1 g/dL (14.0-18.0); Immature Granulocyte Absolute 0.01 K/mm3 (0.00-0.031); Immature Granulocyte Percent A 0.1 % (0-0.5); Lymphocytes Absolute Auto 1.53 K/mm3 (0.9-3.2); Lymphocytes Percent Auto 21.3 % (18.3-44.2); Mean Corpuscular HGB Conc 32.1 g/dl (32-36); Mean Corpuscular Hemoglobin 27.9 pg (26-34); Mean Corpuscular Volume 86.9 fl (80-100); Mean Platelet Volume 9.5 fl (7.4-10.4); Monocytes Absolute Auto 0.5 K/mm3 (0.1-0.6); Monocytes Percent Auto 7.1 % (2.6-8.5); Neutrophils Absolute Auto 4.9 K/mm3 (1.3-6.7); Neutrophils Percent Auto 68.4 % (45.5-73.1); Platelet Count Result 214 k/mm3 (150-375); Red Blood Count 5.05 M/mm3 (4.6-6.20); Red Cell Distribution Width 13.7 % (11.5-14.5); White Blood Count 7.2 K/mm3 (4.5-10.0)
[2022-09-13 05:24] LABS: Alanine Aminotransferase 45 U/L (6-50); Albumin Level 3.7 g/dL (3.5-5.1); Alkaline Phosphatase 48 U/L (38-126); Anion Gap 6 mmol/L (8-16); Aspartate Amino Transferase 94 U/L (17-59); Bilirubin,Total 1.1 mg/dL (0.2-1.3); Blood Urea Nitrogen 12 mg/dL (9-20); Calcium 8.4 mg/dL (8.4-10.2); Carbon Dioxide 27 mmol/L (22-30); Chloride 107 mmol/L (98-107); Estimated CRCL calculation 97 ml/min; Estimated Glomerular Filt Rate > 60; Glucose 105 mg/dL (65-110); Magnesium 2.1 mg/dL (1.6-2.3); Phosphorus 3.7 mg/dL (2.5-4.5); Potassium 3.7 mmol/L (3.4-5.0); Sodium 140 mmol/L (137-145)
[2022-09-13 06:00] VITALS: PULSE 60
[2022-09-13 08:00] VITALS: BP 118/83; PULSE 75; PULSE 78; RESP 18; TEMP 36.3; O2SAT 97
[2022-09-13 08:36] VITALS: PULSE 88
[2022-09-13] MEDS: METOPROLOL TARTRATE 12.5 MG TABLET PO (08:36)
[2022-09-13] MEDS: TICAGRELOR 90 MG TABLET PO (08:36)
[2022-09-13] MEDS: LOSARTAN POTASSIUM 25 MG TABLET PO (08:36)
[2022-09-13] MEDS: ATORVASTATIN 40 MG TABLET 80 MG PO (08:36)
[2022-09-13] MEDS: ASPIRIN 81 MG ENTERIC TABLET PO (08:56)
--- NOTE | 2022-09-13 09:05 | PM.DS ---
DS: Admitting Diagnosis Discharge Date 09/13/2022 Admitting Diagnosis Inferior STEMI DS: Discharge Diagnosis Discharge Diagnosis (1) Acute ST elevation myocardial infarction: Qualifiers: Involved coronary artery: unspecified coronary artery Qualified Code(s): I21.3 - ST elevation (STEMI) myocardial infarction of unspecified site Code(s): I21.3 - ST elevation (STEMI) myocardial infarction of unspecified site Status: Acute (2) Hyperlipidemia: Code(s): E78.5 - Hyperlipidemia, unspecified Status: Acute Plan Patient presented with acute inferior STEMI. Cardiac cath showed acute 100% occlusion of mid RCA. Underwent successful primary PCI with JOSE D x 1. No periprocedural complications. Patient doing well after PCI with no recurrence of chest pain. Echo shows LVEF 55-60%, normal RV size with reduced RVSF. No significant valvular disease. Patient discharged on ASA, Brilinta, high-intensity statin, Toprol, Losartan. DS: Summary Hospital Course Hospital Course: Patient presented with acute inferior STEMI. Cardiac cath showed acute 100% occlusion of mid RCA. Underwent successful primary PCI with JOSE D x 1. No periprocedural complications. Patient doing well after PCI with no recurrence of chest pain. Echo shows LVEF 55-60%, normal RV size with reduced RVSF. No significant valvular disease. Patient discharged on ASA, Brilinta, high-intensity statin, Toprol, Losartan. Status at Discharge Functional status at discharge: independent ambulation Overall status at discharge: patient is back to baseline Time Spent with Patient Time attestation: Total time spent providing and/or coordinating discharge services: Exam Const: General: comfortable and no acute distress HENMT: Mouth: Yes moist mucous membranes Eyes: General: appearance normal, both eyes and all related structures Sclera: sclerae normal Neck: Neck: supple Resp: Effort & Inspection: normal respiratory effort Auscultation: clear to auscultation bilaterally Cardio: Rate: regular rate Rhythm: regular rhythm Heart sounds: no murmurs GI: GI Palp: Yes Soft to palpation and No Tenderness to palpation present (GI) Skin: General skin exam: normal color Neuro: Motor exam (neuro): 5/5 motor strength present throughout Extrem: General: normal to inspection Psych: Mental Status: mental status grossly normal Affect: normal affect DS: Data Data Completed and Pending Labs on day of discharge: Labs from last 24 hours 09/13/22 04:45 WBC 7.2 RBC 5.05 Hgb 14.1 Hct 43.9 MCV 86.9 MCH 27.9 MCHC 32.1 RDW 13.7 Plt Count 214 MPV 9.5 Immature Gran % (Auto) 0.1 Neut % (Auto) 68.4 Lymph % (Auto) 21.3 [place] % (Auto) 7.1 Eos % (Auto) 2.4 Baso % (Auto) 0.7 Lymph # (Auto) 1.53 [place] # (Auto) 0.5 Eos # (Auto) 0.2 Baso # (Auto) 0.1 Abs Immat Gran (auto) 0.01 Absolute Neuts (auto) 4.9 Absolute Nucleated RBC 0.0 Nucleated RBC % 0.0 Sodium 140 Potassium 3.7 Chloride 107 Carbon Dioxide 27 Anion Gap 6 L BUN 12 Creatinine 0.90 Estim Creat Clear Calc 97 Estimated GFR > 60 Glucose 105 Calcium 8.4 Phosphorus 3.7 Magnesium 2.1 Total Bilirubin 1.1 AST 94 H ALT 45 Alkaline Phosphatase 48 Total Protein 7.0 Albumin 3.7 Discharge Plan Discharge Attending physician on discharge: Dustin Rodrigez Discharging Clinician: Dustin Rodrigez Anticipated Discharge Date/Time: 09/13/22 09:01 Patient Disposition: Home, Self-Care Activity: august shower Diet: heart healthy Patient Instructions: Antibiotic Form Stand Alone Forms: General Discharge Information Follow-up/Referrals: Dustin Rodrigez MD [Physician] - Discharge Medications: New aspirin 81 mg Tablet,Delayed Release (Dr/Ec) 81 mg PO QAM Qty: 90 3RF atorvastatin 80 mg tablet 80 mg PO DAILY Qty: 90 3RF losartan 25 mg Tablet 25 mg PO DAILY Qty: 90 3RF Brilinta 90 mg Tablet 90 mg PO Q12HR Qty: 180 3RF metop
== END 2022-09-13 10:42 | disposition home or self-care (01) | DRG 247 ==
LOC: ANHED 21:36 → ANHICU 21:53 → ANHIMU 09-12 18:14
PROVIDERS: Internal Medicine; Admitting Provider Internal Medicine; Emergency Provider Emergency Medicine; PCP Family Medicine; Visit Provider Internal Medicine
PROC: 4A023N7 Measurement of Cardiac Sampling and Pressure, Left Heart, Percutaneous Approach (ICD-10-PCS; CPT 93452; principal; 2022-09-11 22:05)
PROC: 027034Z Dilation of Coronary Artery, One Artery with Drug-eluting Intraluminal Device, Percutaneous Approach (ICD-10-PCS; 2022-09-11 22:05)
PROC: 027034Z Dilation of Coronary Artery, One Artery with Drug-eluting Intraluminal Device, Percutaneous Approach (ICD-10-PCS; 2022-09-11 22:05)
PROC: 027034Z Dilation of Coronary Artery, One Artery with Drug-eluting Intraluminal Device, Percutaneous Approach (ICD-10-PCS; 2022-09-11 22:05)
DX: I21.19 ST elevation (STEMI) myocardial infarction involving other coronary artery of inferior wall (principal); E78.5 Hyperlipidemia, unspecified; F41.9 Anxiety disorder, unspecified; J45.909 Unspecified asthma, uncomplicated; Z82.49 Family history of ischemic heart disease and other diseases of the circulatory system
CPT/HCPCS: 36415; 71045; 80048; 80053; 80061; 83036; 83690; 83735; 84100; 84484; 85025; 85610; 85730; 92978; 93005; 93306; 93458; 99291; A9270; C1725; C1753; C1760; C1769; C1874; C1887; C1894; C9606; G0269; J0282; J0583; J0780; J1327; J1644; J2250; J2270; J2405; J3010; J3475; J7040

== ENCOUNTER 2024-03-05 19:35 | Emergency (ER) | payer OTHER, SELFPAY ==
--- NOTE | ~2024-03-05 | XR_ITS ---
EXAMINATION: XR chest 2V Exam Date/Time: 03/05/2024 19:55 RECEIVER DISPATCHER HISTORY: cough and SOB Comparison: 09/11/2022. RESULT: Lines, tubes, and devices: None. Lungs and pleura: Clear. Cardiomediastinal silhouette: Stable. Other: No acute osseous or upper abdominal finding. IMPRESSION: No acute cardiopulmonary process. Reviewed, dictated and finalized at location K. IVER DISPATCHER
[2024-03-05 19:51] VITALS: BP 149/84; PULSE 84; RESP 16; TEMP 36.5; O2SAT 97
--- NOTE | 2024-03-05 19:52 | ED.URI ---
HPI - URI/Sore Throat General Chief Complaint: Upper Respiratory Infection Stated Complaint: sore throat / chest congestion Time Seen by Provider: 03/05/24 19:52 Source: patient Mode of arrival: ambulatory Limitations: no limitations History of Present Illness HPI Narrative: 53-year-old male presents with complaint of nasal congestion, postnasal drainage, sore throat, coughing for 5-6 days. Patient reports that he had symptoms for 3 days and then felt better. Then cough came back worse with shortness of breath And body aches. patient reports today voice is hoarse. All systems reviewed and negative except as noted above. Related Data Allergies Allergy/AdvReac Type Severity Reaction Status Date / Time No Known Allergies Allergy Verified 03/05/24 19:56 Review of Systems Review of Systems: CONSTITUTIONAL: Denies fever, chills, or sweats. reports fatigue. EYES: Denies visual changes, redness, or discharge. ENT: Reports rhinorrhea, congestion, sore throat. Denies otalgia. CARDIOVASCULAR: Denies chest pain, palpitations, or edema. RESPIRATORY: reports cough and dyspnea with exertion. GASTROINTESTINAL: Denies abdominal pain, nausea, vomiting, or diarrhea. GENITOURINARY: Denies dysuria or hematuria. SKIN: Denies rash or itching. MUSCULOSKELETAL: Denies back pain, joint pain. Reports myalgia. NEUROLOGIC: Denies headache, numbness, or weakness. PSYCHIATRIC: Denies anxiety or depression. All other systems reviewed are negative, except as documented in HPI. [facility] Past Medical History Medical History Abnormal CT of the abdomen Anxiety Asthma High cholesterol Neoplasm of skin Surgical History Surgical History H/O knee surgery x4 H/O removal of cyst Family History Family History Mother Family history of diabetes mellitus in first degree relative Family history of lymphoma Diabetes mellitus Cerebrovascular accident Father Family history of heart disease in male family member before age 55 Social History Social History Smoking status: Never smoker Alcohol intake: current Drinks per week: 1 Substance use: never Lack of Transportation: No Lack of Food: Never True Current Housing: I Have Housing Concerned About Future Housing: Decline to Answer Difficulty Paying Gas/Electric Bills: Decline to Answer Difficulty Paying for Meds: Decline to Answer Currently Unemployed: Decline to Answer Education: Decline to Answer Difficulty w/ Childcare or Family Care: Decline to Answer Living arrangements: with family Occupation/Education: occupation Additional occupation/education comments: [employer] Gender identity (if verbalized by the patient): Male Spiritual care concerns: No Comments At time of signature, agree with nursing past medical, surgical, social and family history. There is no relevant family history pertinent to the presenting complaint. Exam Narrative: GENERAL: This is a well-nourished, well-developed patient, Ill-appearing but in no acute distress HEAD: normocephalic, atraumatic. EYES: PERRL. Sclera clear/white. Vision is grossly intact. EARS: External ears normal, auditory canals clear and without drainage, TMs normal without perforation. Hearing grossly intact. NOSE: External nose normal with clear nasal drainage THROAT: Mucous membranes moist, posterior pharynx clear. Voice is hoarse. NECK: Neck supple, non-tender without lymphadenopathy, masses or thyromegaly. CARDIOVASCULAR: Regular rate and rhythm without murmurs, gallops, or rubs. RESPIRATORY: mildly decreased throughout all lung alva. Breath sounds equal bilaterally. No wheezes, rales, or rhonchi. SKIN: warm, Dry, intact with no suspicious lesions or rash, good texture and turgor. NEURO: awake, alert, and oriented to person, place and time. There were no obvious focal neurologic abnormalities. EXTREMITIES: No joint tenderness, effusion, or edema noted. Course Course Emergency Course: negative influenza. Chest x-ray normal. Patient is well-appearing, nontoxic. Voice is worse. Discussed hydration, humidifier, voice rest for laryngitis. Will prescribed steroid and benzonatate for viral symptoms. Explained to patient his symptoms are viral. Patient is aware of diagnosis, understands and agrees to treatment plan. Anticipatory guidance given. Patient agrees to follow-up as directed and is aware of reasons to seek care at the emergency department. Portions of this record may have been created with voice recognition software Level of Care: Express Care Visit Vital Signs Vital signs: Vital Signs Temperature 36.5 C 03/05/24 19:51 Pulse Rate 84 03/05/24 19:51 Respiratory Rate 16 03/05/24 19:51 Blood Pressure 149/84 H 03/05/24 19:51 Pulse Oximetry 97 03/05/24 19:51 Oxygen Delivery Room Air 03/05/24 19:51 Temperature 36.5 C 03/05/24 19:51 Pulse Rate 84 03/05/24 19:51 Respiratory Rate 16 03/05/24 19:51 Blood Pressure 149/84 H 03/05/24 19:51 Pulse Oximetry 97 03/05/24 19:51 Oxygen Delivery Room Air 03/05/24 19:51 Reviewed MDM - URI/Sore Throat MDM Narrative Medical decision making narrative: Patient is aware of diagnosis, understands and agrees to treatment plan. Anticipatory guidance given. Patient agrees to follow-up as directed and is aware of reasons to seek care at the emergency department. Portions of this record may have been created with voice recognition software Lab Data Labs: Lab Results 03/05/24 Range/Units 20:21 POC Influenza A Ag Negative (Negative) POC Influenza B Ag Negative (Negative) Discharge Plan Discharge Clinical Impression: Viral upper respiratory tract infection with cough, Laryngitis Patient Disposition: Home, Self-Care Condition: Stable Instructions: Upper Respiratory Infection (ED) Additional Instructions: Your influenza test was negative today. Your chest x-ray was normal. Take medications as prescribed. Take ibuprofen or Tylenol every 6-8 hours as needed for pain and fever. Drink at least 64 oz of water a day. Place cool mist humidifier in bedroom where you sleep. Drink hot tea with honey to soothe throat and treat cough. Follow-up your doctor if symptoms are not improving. Prescriptions: New benzonatate 200 mg capsule 200 mg PO TID PRN (Reason: cough) Qty: 20 0RF methylprednisolone [Medrol (Ronald)] 4 mg tablets,dose pack See Rx Instructions PO .COMPLEX Qty: 21 0RF Rx Instructions: orally per package directions No Action aspirin 81 mg Tablet,Delayed Release (Dr/Ec) 81 mg PO QAM Qty: 90 3RF Follow-up/Referrals: PHYSICIAN,DIAGNOSTIC ASSISTANT [Primary Care Provider] - Stand Alone Forms: Work/School Release IP Time of Disposition: 20:31
[2024-03-05 20:22] LABS: EDINFLUASCREEN Negative (Negative); EDINFLUBSCREEN Negative (Negative)
== END 2024-03-05 20:35 | disposition home or self-care (01) ==
PROVIDERS: Emergency Provider Nurse Practitioner Family
DX: J06.9 Acute upper respiratory infection, unspecified (principal); B97.89 Other viral agents as the cause of diseases classified elsewhere
CPT/HCPCS: 71046; 87804; 99213; G0463

== ENCOUNTER 2024-12-10 18:38 | Emergency (ER) | payer OTHER, SELFPAY ==
[2024-12-10 18:42] VITALS: BP 119/76; PULSE 55; RESP 16; TEMP 36.3; O2SAT 97
--- NOTE | 2024-12-10 19:00 | ED_ITS ---
HPI - General Adult General Chief complaint: Skin/Abscess/Foreign Body Stated complaint: Swollen R Hand Time Seen by Provider: 12/10/24 19:00 Source: patient, RN notes reviewed and old records reviewed Mode of arrival: ambulatory Limitations: no limitations History of Present Illness HPI narrative: 54-year-old male presents to the [facility] with right hand swelling, reports that he was stung by wasp. Swelling noted to the right hand. Walks being between 3rd and 4th MCP. Occurred approximately 2:00 p.m. yesterday. Has taken Zyrtec yesterday and today. Did take prior to arrival some Benadryl. Has been applying ice. Related Data Allergies Allergy/AdvReac Type Severity Reaction Status Date / Time No Known Allergies Allergy Verified 12/10/24 19:08 Review of Systems Review of Systems: All systems reviewed & are unremarkable except as noted in HPI and below Constitutional: Constitutional: Reports no additional constitutional complaints ENT: Reports system reviewed and no additional complaints, except as documented Cardiovascular: Cardiovascular: Reports no additional cardiovascular complaints, Denies chest pain and Denies dyspnea Respiratory: Respiratory: Reports no additional respiratory complaints, Denies chest congestion, Denies cough and Denies dyspnea Musculoskeletal: Musculoskeletal: Reports as per HPI Integumentary/Breasts: Skin/Breast: Reports as per HPI PMFSH Past Medical History Medical History Abnormal CT of the abdomen Anxiety High cholesterol Neoplasm of skin Asthma Surgical History Surgical History H/O removal of cyst H/O knee surgery x4 Family History Family History Mother Family history of diabetes mellitus in first degree relative Family history of lymphoma Diabetes mellitus Cerebrovascular accident Father Family history of heart disease in male family member before age 55 Social History Social History Smoking status: Never smoker Alcohol intake: current Drinks per week: 1 Substance use: never Lack of Transportation: No Lack of Food: Never True Current Housing: I Have Housing Concerned About Future Housing: Decline to Answer Difficulty Paying Gas/Electric Bills: Decline to Answer Difficulty Paying for Meds: Decline to Answer Currently Unemployed: Decline to Answer Education: Decline to Answer Difficulty w/ Childcare or Family Care: Decline to Answer Living arrangements: with family Occupation/Education: occupation Additional occupation/education comments: [employer] Gender identity (if verbalized by the patient): Male Spiritual care concerns: No Comments At the time of my signature, I reviewed and agree with the nursing past medical, surgical, social, and family history. There is no relevant family history pertinent to the patient complaint. Exam Const: General: cooperative, healthy appearing, comfortable, no acute distress, well developed, alert and well nourished Nutritional Appearance: well nourished Orientation/consciousness: patient oriented x3 Limitations: no limitations HENMT: Head: normal to inspection Eyes: General: appearance normal, both eyes and all related structures Alignment and Position: alignment normal Neck: Neck: normal visual inspection, full ROM, no lymphadenopathy and no meningeal signs Chest: Chest palpation & inspection: normal inspection of the chest Resp: Effort & Inspection: normal respiratory effort and able to speak in complete sentences Auscultation: clear to auscultation bilaterally, no crackles, no rales, no rhonchi and no wheezes Cardio: Rate: regular rate Skin: General skin exam: normal color and no rashes or lesions noted Other: Wound, stung between MCP 3 and 4 right hand, swelling is noted. No increased warmth to the dorsal hand. Reports fingers when making a fist is tight but able to make a fist. No snuffbox tenderness, capillary refill under 2 seconds. Positive radial pulse is Neuro: General: patient oriented x3, gait normal, moves all extremities and no meningeal signs Cognition (Neuro): normal cognition Speech: normal speech Gait exam (Neuro): Normal gait present Extrem: General: normal to inspection, full ROM, capillary refill normal and normal gait Psych: Appearance: grossly normal and well kempt Mental Status: mental status grossly normal Speech and movement: Normal speech and movement present and Clear speech present Affect: normal affect Attitude: cooperative Course Course Level of Care: Express Care Visit Vital Signs Vital signs: Vital Signs Temperature 97.4 F L 12/10/24 18:42 Pulse Rate 55 L 12/10/24 18:42 Respiratory Rate 16 12/10/24 18:42 Blood Pressure 119/76 12/10/24 18:42 Pulse Oximetry 97 12/10/24 18:42 Temperature 97.4 F L 12/10/24 18:42 Pulse Rate 55 L 12/10/24 18:42 Respiratory Rate 16 12/10/24 18:42 Blood Pressure 119/76 12/10/24 18:42 Pulse Oximetry 97 12/10/24 18:42 Reviewed Medical Decision Making MDM Narrative Medical decision making narrative: Patient sitting comfortably in exam room. Nontoxic, vitals stable. Patient in no acute distress Patient presents after being stung yesterday at 2:00 p.m.. Still having swelling to the hand. Discussed continued [id number] treatments. Discussed adding prednisone which he will start in the morning, will not take tonight. Patient is appropriate for outpatient treatment with close follow-up Discharge instructions reviewed with patient, as well as provided in writing per nursing staff. The instructions also include specific and strict return/GO TO THE ER as well as f/u information. All questions have been answered, and the patient deny any further questions with discharge and discharge plan. Some parts of this dictation were generated by voice recognition software and may contain typographical and/or grammatical inaccuracies. Differential Diagnosis Differential Diagnosis: Localized allergic reaction, what is being stating Medical Records Medical records reviewed: Yes I reviewed the external patient's medical records. Vital Signs Vital Signs: Vital Signs Temperature 97.4 F L 12/10/24 18:42 Pulse Rate 55 L 12/10/24 18:42 Respiratory Rate 16 12/10/24 18:42 Blood Pressure 119/76 12/10/24 18:42 Pulse Oximetry 97 12/10/24 18:42 Temperature 97.4 F L 12/10/24 18:42 Pulse Rate 55 L 12/10/24 18:42 Respiratory Rate 16 12/10/24 18:42 Blood Pressure 119/76 12/10/24 18:42 Pulse Oximetry 97 12/10/24 18:42 Reviewed Lab Data Lab results reviewed: Yes I reviewed the patient's lab results. Labs: Reviewed Critical Care Time Critical Care Time Critical Care Time: No Discharge Plan Discharge Clinical Impression: Accidental wasp sting Patient Disposition: Home Condition: Stable Instructions: Antibiotic Form, Insect Bite or Sting (ED), General Allergic Reaction (ED) Additional Instructions: The most important part of your care is follow up with Primary care provider. Take Benadryl 25-50 mg every 8 hours for itching Take Zyrtec every day Take Pepcid 20mg daily for 7 days You can start the steroids 1st thing in the morning. Take every morning. Avoid hot showers, Take cool showers. Hot showers will make rashes worse Apply cool compresses every 2-3 hours for 15 minutes Go to the ER for new or worsening symptoms such as shortness of breath. Patient Language: Malay Prescriptions: New prednisone 20 mg tablet See Rx Instructions .Route .COMPLEX Qty: 9 0RF Rx Instructions: Take 40 mg daily for 3 days, 20 mg daily for 3 days No Action benzonatate 200 mg capsule 200 mg PO TID PRN (Reason: cough) Qty: 20 0RF methylprednisolone [Medrol (Ronald)] 4 mg tablets,dose pack See Rx Instructions PO .COMPLEX Qty: 21 0RF Rx Instructions: orally per package directions aspirin 81 mg Tablet,Delayed Release (Dr/Ec) 81 mg PO QAM Qty: 90 3RF Follow-up/Referrals: Luna,Katelyn Friend, DIRECTOR OF MECHANICAL ENGINEERING [Primary Care Provider, Unknown] - 2 Weeks Stand Alone Forms: Work/School Release IP Time of Disposition: 19:08
== END 2024-12-10 19:10 | disposition home or self-care (01) ==
PROVIDERS: Emergency Provider Nurse Practitioner
DX: T63.461A Toxic effect of venom of wasps, accidental (unintentional), initial encounter (principal); E78.00 Pure hypercholesterolemia, unspecified; J45.909 Unspecified asthma, uncomplicated; Z85.828 Personal history of other malignant neoplasm of skin
CPT/HCPCS: 99213; G0463

== ENCOUNTER 2025-03-30 10:08 | Emergency (ER) | payer OTHER, SELFPAY ==
--- NOTE | 2025-03-30 10:12 | ED.URI ---
HPI - URI/Sore Throat General Chief Complaint: Upper Respiratory Infection Stated Complaint: Strep Symptoms Time Seen by Provider: 03/30/25 10:10 Source: patient Mode of arrival: ambulatory Limitations: no limitations History of Present Illness HPI Narrative: patient is a 54-year-old male who presents with 3-4 days congestion and drainage. Sore throat started last night. Also having pressure in right ear. Denies any fever, chills, nausea, vomiting, diarrhea. Has taken NyQuil tablets at night Related Data Allergies Allergy/AdvReac Type Severity Reaction Status Date / Time No Known Allergies Allergy Verified 03/30/25 10:28 Review of Systems Review of Systems: All systems reviewed & are unremarkable except as noted in HPI and below Constitutional: Constitutional: Denies chills, Denies fatigue, Denies fever(s), Denies headache(s), Denies malaise and Denies weakness Eyes: Eyes: Denies blurry vision, Denies itchy eyes and Denies loss of vision ENT: Reports otalgia, Denies headache(s), Reports nasal congestion, Denies sinus pain and Reports sore throat Cardiovascular: Cardiovascular: Denies chest pain, Denies irregular heart rhythm and Denies dyspnea Respiratory: Respiratory: Denies cough and Denies dyspnea Gastrointestinal: Gastrointestinal: Denies abdominal pain, Denies diarrhea, Denies nausea and Denies vomiting Musculoskeletal: Musculoskeletal: Denies back pain, Denies myalgias and Denies arthralgias Integumentary/Breasts: Skin/Breast: Denies pruritus and Denies rash Neurologic: Denies headache(s), Denies loss of vision and Denies weakness Psychiatric: Psychiatric: Reports no additional psychiatric complaints Endocrine: Endocrine: Denies fatigue Allergic/Immunologic: Allergic/Immunologic: Denies itchy eyes PMFSH Past Medical History Medical History Abnormal CT of the abdomen Anxiety High cholesterol Neoplasm of skin Asthma Surgical History Surgical History H/O removal of cyst H/O knee surgery x4 Family History Family History Mother Family history of diabetes mellitus in first degree relative Family history of lymphoma Diabetes mellitus Cerebrovascular accident Father Family history of heart disease in male family member before age 55 Social History Social History Smoking status: Never smoker Alcohol intake: current Drinks per week: 1 Substance use: never Lack of Transportation: No Lack of Food: Never True Current Housing: I Have Housing Concerned About Future Housing: Decline to Answer Difficulty Paying Gas/Electric Bills: Decline to Answer Difficulty Paying for Meds: Decline to Answer Currently Unemployed: Decline to Answer Education: Decline to Answer Difficulty w/ Childcare or Family Care: Decline to Answer Living arrangements: with family Occupation/Education: occupation Additional occupation/education comments: [employer] Gender identity (if verbalized by the patient): Male Spiritual care concerns: No Comments At time of signature, agree with nursing past medical, surgical, social and family history. There is no relevant family history pertinent to the presenting complaint. Exam Const: General: cooperative, healthy appearing, comfortable, no acute distress and well nourished Nutritional Appearance: well nourished Orientation/consciousness: patient oriented x3 Limitations: no limitations HENMT: Head: normal to inspection, normocephalic and atraumatic Ears: hearing grossly normal bilaterally, external ears normal, TM's normal bilaterally, EAC's normal and no periauricular adenopathy Face/Nose/Sinus: Normal external nose present, Abnormal mucous membranes and turbinates present erythematous bilateral and diffuse, normal facial exam, sinuses nontender and face symmetric Face and sinus: normal facial exam, sinuses nontender and face symmetric Mouth: Yes Normal oral and palatal mucosa present, Yes lip normal, Yes tongue normal, Yes Normal salivary glands and ducts present, Yes oropharynx normal and Yes moist mucous membranes Teeth and gingiva: dentition normal Throat: posterior oropharynx normal, tonsils normal and uvula midline Eyes: General: appearance normal, both eyes and all related structures Alignment and Position: alignment normal and position normal Periorbital: periorbital findings normal Eyelids: eyelids normal Pupils: Equal, round and reactive pupils present Neck: Neck: normal visual inspection, full ROM, no lymphadenopathy and supple Chest: Chest palpation & inspection: normal inspection of the chest and normal palpation of entire chest wall Resp: Effort & Inspection: normal respiratory effort and able to speak in complete sentences Auscultation: clear to auscultation bilaterally, no crackles, no rales, no rhonchi and no wheezes Cardio: Rate: regular rate Rhythm: regular rhythm Heart sounds: S1 normal heart sound present and S2 normal heart sound present GI: Inspection: normal to inspection Skin: General skin exam: normal color and no rashes or lesions noted Neuro: General: patient oriented x3 and moves all extremities Cranial nerves: Yes Equal, round and reactive pupils present Speech: normal speech Gait exam (Neuro): Normal gait present Extrem: General: normal to inspection, full ROM and no edema Psych: Appearance: grossly normal and well kempt Mental Status: mental status grossly normal Speech and movement: Normal speech and movement present Affect: normal affect Attitude: cooperative Thought process: Normal thought process present Course Course Emergency Course: Patient is aware of diagnosis, understands and agrees to treatment plan. Anticipatory guidance given. Patient agrees to follow-up as directed and is aware of reasons to seek care at the emergency department. Portions of this record may have been created with voice recognition software Level of Care: Express Care Visit Vital Signs Vital signs: Vital Signs Temperature 36.8 C 03/30/25 11:49 Pulse Rate 67 03/30/25 11:49 Respiratory Rate 16 03/30/25 11:49 Blood Pressure 131/85 03/30/25 11:49 Pulse Oximetry 98 03/30/25 11:49 Temperature 36.8 C 03/30/25 11:49 Pulse Rate 67 03/30/25 11:49 Respiratory Rate 16 03/30/25 11:49 Blood Pressure 131/85 03/30/25 11:49 Pulse Oximetry 98 03/30/25 11:49 [facility] MDM Narrative Medical decision making narrative: Rapid COVID, flu, strep were negative. A throat culture is pending. Symptoms likely viral in etiology. Pt well hydrated appearing, in no respiratory distress, hemodynamically stable. Recommend supportive care. The patient is stable at time of discharge the clinical impression was discussed and the patient was given the opportunity to ask questions, which were addressed as completely as possible given the information available at present. Anticipatory guidance and return to care precautions were discussed and the importance of primary care follow-up was stressed and encouraged. The patient voiced understanding of the plan, indications to return, and the need for follow-up. Exam findings show no acute concerns or changes Patient is appropriate for outpatient treatment and follow-up. Differential Diagnosis Differential Diagnosis: Differential diagnosis considered: Chairez virus, strep pharyngitis, allergic rhinitis, upper respiratory tract infection, sinusitis, rhinosinusitis, nasopharyngitis. viral pharyngitis, otitis media, otitis externa, otitis effusion, foreign body, cerumen impaction, viral syndrome, and influenza. Medical Records I have reviewed the following patient records and this information was taken into consideration when formulating the assessment and plan.: previous clinic visits Lab Data MDM Lab Attestation statement: I personally reviewed the patient's lab results. Labs: Lab Results 03/30/25 Range/Units 10:51 POC Influenza A Ag Negative (Negative) POC Influenza B Ag Negative (Negative) POC SARS CoV-2 Ag Negative (Negative) POC Grp A Strep Screen Negative (Negative) Discharge Plan Discharge Clinical Impression: Upper respiratory infection Qualifiers: URI type: acute nasopharyngitis (common cold) Qualified Code(s): J00 - Acute nasopharyngitis [common cold] Patient Disposition: Home Condition: Stable Instructions: Cold Symptoms (ED) Additional Instructions: Your rapid strep swab was negative today at [facility]. A throat culture will be sent to the laboratory for further testing. If the test is positive, you will receive a phone call within 48 hours and an appropriate antibiotic will be initiated at that time. Your Covid and flu are both negative Your symptoms are likely due to a viral illness, which is not treated with antibiotics. Viral symptoms can be present for up to a few weeks. -For pain/fever, you may take: Tylenol 650-1000mg by mouth every 4-6 hours. Do not exceed 4000mg in 24 hours. Advil (Ibuprofen) 600 mg by mouth every 6 hours. Do not exceed 2400mg in 24 hours. 8 AM: Tylenol 11 AM: Ibuprofen 2 PM: Tylenol 5 PM: Ibuprofen 8 PM: Tylenol 11 PM: Ibuprofen 2 AM: Tylenol 5 AM: Ibuprofen -Antihistamine medication such as Benadryl/Zyrtec at night and Claritin/Teresita during the day can help improve symptoms. -Use Flonase twice a day for 5 days then daily to help reduce the inflammation and dry up your sinuses. -You can also use Sudafed behind the pharmacy counter(12 or 24 hour). Be sure to drink plenty of water with these medications at least 8 ounces with every dose and it is important to drink 8 to 10 glasses of water per day. Water is a natural decongestant -Eat and drink things that are easy to swallow, like tea or soup, or popsicles. -Oral rinses such as: Salt water gargles and/or may use topical anesthetic (eg. Chloraseptic spray) or lozenges to relieve dryness or throat pain). -Frequent hand washing or hand transmission system operator is one of the best ways to prevent spread of infection. -Using a vaporizer or humidifier at night will also help thin secretions and help with coughing up phlegm. Call your Primary Care Doctor and make a follow-up appointment in 3 days. If your cough worsens, you develop a fever greater than 103, you develop shaking chills, a fast heartbeat, trouble breathing and/or feel you are are breathing much faster than usual, call your Primary Care Doctor or go to the ER. Patient Language: Kazakh Prescriptions: No Action aspirin 81 mg Tablet,Delayed Release (Dr/Ec) 81 mg PO QAM Qty: 90 3RF Follow-up/Referrals: Gabino Dean MD [Physician, Family Practice] Time of Disposition: 11:17
[2025-03-30 10:53] LABS: EDCOVIDSCREEN Negative (Negative); EDINFLUASCREEN Negative (Negative); EDINFLUBSCREEN Negative (Negative); EDSTREPNEGPOS1 Negative (Negative)
[2025-03-30 11:49] VITALS: BP 131/85; PULSE 67; RESP 16; TEMP 36.8; O2SAT 98
== END 2025-03-30 11:18 | disposition home or self-care (01) ==
PROVIDERS: Emergency Provider Nurse Practitioner Family
DX: J00 Acute nasopharyngitis [common cold] (principal); Z20.822 Contact with and (suspected) exposure to COVID-19; E78.00 Pure hypercholesterolemia, unspecified; J45.909 Unspecified asthma, uncomplicated; Z85.828 Personal history of other malignant neoplasm of skin; Z79.82 Long term (current) use of aspirin
CPT/HCPCS: 87081; 87426; 87804; 87880; 99213; G0463